=== PATIENT | female | born 1995 | race Caucasian/White ===

== ENCOUNTER 2017-08-04 14:04 | Day surgery (SDC) | payer BC ==
[~2017-08-04] VITALS: Ht 165.1 cm; Wt 72.3 kg
[2017-08-04] VITALS (7 sets, daily range): BP systolic 106–119; BP diastolic 63–78; PULSE 51–77; TEMP 97.1–97.4
[2017-08-04] MEDS ORDERED: NUVARING VAG RING VG (14:22)
[2017-08-04] MEDS ORDERED: ZOFRAN 4MG T4 MG/TAB PO (14:22)
== END 2017-08-04 17:05 | disposition home or self-care (01) ==
LOC: SDCO 14:04
DX: K59.00 Constipation, unspecified (principal); K21.0 Gastro-esophageal reflux disease with esophagitis; Z88.0 Allergy status to penicillin
CPT/HCPCS: J2250; J2405; J3010; J7030